=== PATIENT | female | born 1955 | race Caucasian/White ===

== ENCOUNTER 2018-02-25 12:24 | Emergency (ER) | payer OTHER ==
[2018-02-25 12:32] VITALS: BP 142/82; PULSE 70; RESP 18; TEMP 98.4; O2SAT 99
[2018-02-25] MEDS ORDERED: Lidocaine 1% Inj (20ml) INFIL ONE (13:32)
[2018-02-25] MEDS ORDERED: Tdap Vaccine 0.5 ml Vial (10-64 yrs) IM ONE (13:32)
--- NOTE | 2018-02-25 13:35 | C.PDOC ---
History Of Present Illness 62 year old female with a history of diabetes and hypertension presents to the ED for evaluation of left nostril bleeding and inner upper lip laceration s/p trip and fall 1 hour ago. Patient states she [place]pped and [place], helped to her feet by bystanders, felt dizzy for a brief period of time which has since resolved, and was seen in [facility] who advised the patient to visit the ED. Unaware of last Tetanus vaccination. Denies being on blood thinners, headache, fever, nausea, vomiting, LOC, chest pain, loose teeth, neck pain, and any other associated symptoms. - HPI Time Seen by Provider: 02/25/18 12:51 Chief Complaint (Nursing): Trauma History Per: Patient History/Exam Limitations: no limitations Onset/Duration Of Symptoms: Hrs Associated Symptoms: Dizziness (resolved.) Past Medical History Reviewed: Historical Data, Nursing Documentation, Vital Signs Vital Signs: Last Vital Signs Temp 98.4 F 02/25/18 12:27 Pulse 70 02/25/18 12:27 Resp 18 02/25/18 12:27 BP 142/82 02/25/18 12:27 Pulse Ox 99 02/25/18 12:27 - Medical History PMH: HTN Family History: States: Unknown Family Hx - Social History Hx Alcohol Use: No Hx Substance Use: No - Immunization History Hx Tetanus Toxoid Vaccination: No Hx Influenza Vaccination: No Hx Pneumococcal Vaccination: No Review Of Systems Except As Marked, All Systems Reviewed And Found Negative. Constitutional: Negative for: Fever, Chills ENT: Negative for: Other (loose teeth. ) Cardiovascular: Negative for: Chest Pain Gastrointestinal: Negative for: Nausea, Vomiting Musculoskeletal: Negative for: Neck Pain Neurological: Negative for: Headache Physical Exam - Physical Exam Appears: Well (well-nourished. ), Non-toxic, Other (no rand signs. ) Skin: Warm, Dry Head: Normacephalic, Abrasion (to the right side of the forhead. ) Eye(s): bilateral: PERRL, Other (no raccoon eyes. swelling to the right eye. ) Ear(s): Bilateral: Other (hemotympanum bilaterally.) Nose: Tenderness (to the left side of the bridge.), No Septal Hematoma, Other (scant bleeding to the left nostril. abrasion to the left side of the bridge. abrasion to the tip of the nose. ) Oral Mucosa: Moist Lips: Swelling (to the right upper lip. ), Abrasion (to the right side of the inner upper lip with a 1cm irregular wide laceration. ) Neck: Normal ROM, Supple Chest: Symmetrical, No Deformity Cardiovascular: Rhythm Regular, No Murmur Respiratory: Normal Breath Sounds, No Rales, No Rhonchi, No Wheezing Back: Normal Inspection, No CVA Tenderness, No Vertebral Tenderness, No Paraspinal Tenderness Extremity: Normal ROM (x4) Neurological/Psych: Oriented x3, Normal Speech, Normal Motor, Normal Sensation, Normal Reflexes Gait: Steady ED Course And Treatment O2 Sat by Pulse Oximetry: 99 (RA) Pulse Ox Interpretation: Normal - Other Rad Nasal Bone X-ray X-Ray: Viewed By Me, Read By Radiologist Interpretation: PROCEDURE: Radiographs of Nasal Bones. HISTORY: fall on face, beeding left nares, swollen tender. COMPARISON: None available. TECHNIQUE: Frontal and lateral radiographs of the nasal bones. FINDINGS: There are 2 nondisplaced fractures of the nasal bone on the lateral view. There is little if any focal soft tissue swelling here. There is ill definition to the maxillary spine on both views-this appearance is indeterminate. Clinical correlation here is needed in terms of any focal pain along the anterior maxillary spine as the imaging findings here are indeterminate. IMPRESSION: Non depressed nasal bone fractures as above. Indeterminate the appearance/given the ill definition of the anterior maxillary spine. Clinical correlation with any focal pain here is needed in terms of the likelihood unlikely possibility of a concomitant tiny maxillary spine fracture here. Progress Note: Given Lidocaine, Tylenol, Tetanus vaccine. Sent for X-ray of the Nasal Bones. Procedure: Irregular v-shaped laceration to the inner lip. Required wound repair. X3 sutures applied, Bacitracin applied, 4-o absorbable material. pt tolerated procedure well. Procedure: Wound Repair - Time Performed Time Performed: 16:00 - Procedure Procedure: Wound Repair: applied Bacitracin and 4-o absorbable material. - Performed by Performed by: Mid-level Provider (PA) - Indications Indication(s):: Laceration - Location Location:: Lip Shape:: Other (v-shaped, irregular. ) Depth:: Epidermis - Complexity Complexity:: Simple (one layer) - Wound repair method Sutures:: # (x3) - Patient tolerated procedure Patient Tolerated Procedure:: Well Medical Decision Making Medical Decision Making: pt with nasal trauma, fx on xray. lip laceration repaired. d/c home with augmentin and ent f/u Disposition Counseled Patient/Family Regarding: Studies Performed, Diagnosis, Need For Followup, Rx Given - Disposition Referrals: Giancarlo Thomson MD [Staff Provider] - Disposition: HOME/ ROUTINE Disposition Time: 15:59 Condition: GOOD Additional Instructions: Cold compresses (over light cloth) to nose and lip several times a day to decrease swelling Take antibiotic as prescribed Tylenol for pain Rinse mouth with water after eating to remove food particles Follow up with Dr Thomson next week. Return to ER for any severe headache, vomiting, unusual behavior or other concerns. Prescriptions: Amoxicillin/Clavulanate [Augmentin 875 MG-125 MG] 1 tab PO BID #14 tab Instructions: Closed Head Injury (DC), Laceration Repair With Stitches (DC), Nose Fracture (DC) Forms: [facility] (Turkish), General Discharge Instructions - Clinical Impression Clinical Impression: Fall from slip, trip, or stumble, Nasal bone fractures, Lip laceration, Abrasion, multiple sites - PA / ASSOCIATE PROFESSOR OF RADIOLOGY / Resident Statement MD/DO has reviewed & agrees with the documentation as recorded. - Scribe Statement The provider has reviewed the documentation as recorded by the Scribe (Lina Chin) All medical record entries made by the Scribe were at my direction and personally dictated by me. I have reviewed the chart and agree that the record accurately reflects my personal performance of the history, physical exam, medical decision making, and the department course for this patient. I have also personally directed, reviewed, and agree with the discharge instructions and disposition.
[2018-02-25] MEDS ORDERED: Lidocaine Hydrochloride 5 ML INJ ONE (14:00)
[2018-02-25] MEDS ORDERED: Tetanus/Diphtheria Toxoids 0.5 ml Syringe IM ONE (14:00)
--- NOTE | 2018-02-25 15:44 | RAD ---
Date of service: 02/25/2018 PROCEDURE: Radiographs of Nasal Bones HISTORY: fall on face, beeding left nares, swollen tender COMPARISON: None available. TECHNIQUE: Frontal and lateral radiographs of the nasal bones. FINDINGS: There are 2 nondisplaced fractures of the nasal bone on the lateral view. There is little if any focal soft tissue swelling here. There is ill definition to the maxillary spine on both views-this appearance is indeterminate. Clinical correlation here is needed in terms of any focal pain along the anterior maxillary spine as the imaging findings here are indeterminate IMPRESSION: Non depressed nasal bone fractures as above. Indeterminate the appearance/given the ill definition of the anterior maxillary spine. Clinical correlation with any focal pain here is needed in terms of the likelihood unlikely possibility of a concomitant tiny maxillary spine fracture here.
[2018-02-25] MEDS ORDERED: Amoxicillin-Clav 875-125 mg Tab PO STA (15:56)
[2018-02-25] MEDS ORDERED: Bacitracin 500 Units/gm Oint Foilpak UD TOP ONE (15:56)
[2018-02-25] MEDS ORDERED: Bacitracin 500 Units/gm Oint Foilpak UD ONE (15:58)
[2018-02-25] MEDS ORDERED: Amoxicillin-Clav 875-125 mg Tab PO ONE (16:02)
== END 2018-02-25 16:15 | disposition home or self-care (01) ==
LOC: C.ER 12:24
DX: S01.511A Laceration without foreign body of lip, initial encounter (principal); S02.2XXA Fracture of nasal bones, initial encounter for closed fracture; W01.0XXA Fall on same level from slipping, tripping and stumbling without subsequent striking against object, initial encounter; Y92.480 Sidewalk as the place of occurrence of the external cause